=== PATIENT | male | born 1945 | race Caucasian/White ===

== ENCOUNTER 2017-06-03 12:44 | Emergency (ER) | payer OTHER ==
[~2017-06-03] VITALS: Ht 170.2 cm; Wt 79.7 kg
[~2017-06-03 12:44] MED LIST: ENAL20TA81 PO; HYDR-2768 PO; SPIRCAP INH; VENTAER INH
[2017-06-03 12:53] VITALS: BP 148/69; PULSE 84; RESP 16; TEMP 97.8; O2SAT 98
[2017-06-03] MEDS ORDERED: LOVA10TA PO (13:21)
[2017-06-03] MEDS ORDERED: HYDR25TA5 PO (13:21)
[2017-06-03] MEDS ORDERED: ENAL5TAB PO (13:21)
[2017-06-03] MEDS ORDERED: DIFL100T PO (14:29)
[2017-06-03] MEDS ORDERED: CLIN300C5 PO (14:29)
--- NOTE | 2017-06-03 14:30 | PD ---
HPI Chief Complaint: Skin Problem Time Seen by Provider: 13:25 Travel History International Travel<30 days: No Contact w/Intl Traveler<30days: No Traveled to known affect area: No History of Present Illness HPI This is a 71-year-old male here for evaluation of possible skin infection of feet and hands 4 weeks. He reports he believes the area with athlete's foot and attempted to use [id number] antifungal cream with minimal results. He reports the area has become increasingly more painful and red which now has dry cracking skin. He denies fever or chills. Symptom severity is moderate. No aggravating factors. PFSH Past Medical History Hx Anticoagulant Therapy: Yes (ASA 81mg daily) Cancer: No High Cholesterol: Yes Diabetes: No Diminished Hearing: No Glaucoma: No Hepatitis: No Hiatal Hernia: Yes Hypertension: Yes Thyroid Disease: No Tetanus Vaccination: < 5 Years Influenza Vaccination: Yes ?: Not Past Surgical History Abdominal Surgery: No Cardiac Surgery: No Ear Surgery: No Endocrine Surgery: No Eye Surgery: No Genitourinary Surgery: Yes (VASECTOMY 1967) Gynecologic Surgery: No Oral Surgery: No Pacemaker: No Thoracic Surgery: No Other Surgery: Yes (RIGHT INGUNIAL HERNIA) Social History Alcohol Use: Yes (3 BEERS/DAY) Tobacco Use: Yes (/2 PPD) Allergies-Medications (Allergen,Severity, Reaction): Coded Allergies: No Known Allergies (Unverified , 05/07/09) Reported Meds & Prescriptions Reported Meds & Active Scripts Active Reported Enalapril (Enalapril Maleate) 5 Mg Tab 5 Mg PO DAILY Hydrochlorothiazide 25 Mg Tab 25 Mg PO DAILY Lovastatin 10 Mg Tab 10 Mg PO DAILY Review of Systems Except as stated in HPI: all other systems reviewed are Neg General / Constitutional: No: Fever Eyes: No: Visual changes HENT: No: Headaches Cardiovascular: No: Chest Pain or Discomfort Respiratory: No: Shortness of Breath Gastrointestinal: No: Abdominal Pain Genitourinary: No: Dysuria Musculoskeletal: No: Pain Skin: Positive Rash Physical Exam Narrative GENERAL: Alert well-appearing 71-year-old male SKIN: Warm and dry. HEAD: Normocephalic. EYES: No injection or drainage. NECK: Supple, trachea midline. CARDIOVASCULAR: Regular rate and rhythm without murmurs, gallops, or rubs. RESPIRATORY: Breath sounds equal bilaterally. No accessory muscle use. GASTROINTESTINAL: Abdomen soft, non-tender, nondistended. MUSCULOSKELETAL: No cyanosis. Lower extremities: 1+ pitting edema in both ankles. Patient reports this is chronic. 2+ DP pulses area and normal sensation. Brisk cap refill. Erythema and dry cracking skin to the plantar aspect of both feet and webs of toes. Data Data Last Documented VS Vital Signs Date Time Temp Pulse Resp B/P (MAP) Pulse Ox O2 Delivery O2 Flow Rate FiO2 06/03/17 12:53 97.8 84 16 148/69 (95) 98 MDM Medical Decision Making Medical Screen Exam Complete: Yes Emergency Medical Condition: Yes Differential Diagnosis Tinea pedis, cellulitis, abscess Narrative Course 71-year-old male here with tinea pedis unresponsive to [id number] antifungals. It now appears that he has possibly secondary infection. He is nontoxic appearing. He is afebrile. He has a follow-up appointment with his primary doctor on Wednesday. He will be started on antifungals and antibiotics. Diagnosis Primary Impression: Tinea pedis Qualified Codes: B35.3 - Tinea pedis Additional Impression: Cellulitis Qualified Codes: L03.90 - Cellulitis, unspecified Referrals: Primary Care Physician Additional Instructions: Medication as directed. Keep your follow-up appointment with her doctor on Wednesday. Return to the emergency department if he developed new or worsening symptoms. Scripts Clindamycin (Clindamycin) 300 Mg Cap 300 MG PO Q6H for Infection for 7 Days, #28 CAP 0 Refills Prov: Anamaria Fraser 06/03/17 Fluconazole (Diflucan) 100 Mg Tab 100 MG PO DAILY for Infection for 7 Days, #7 TAB 0 Refills Prov: Anamaria Fraser 06/03/17 Disposition: 01 DISCHARGE HOME Condition: Stable Anamaria Fraser Jun 03, 2017 14:30
== END 2017-06-03 14:56 | disposition home or self-care (01) ==
LOC: PHEFT 12:44
DX: B35.3 Tinea pedis (principal); F17.200 Nicotine dependence, unspecified, uncomplicated; E78.00 Pure hypercholesterolemia, unspecified; I10 Essential (primary) hypertension
CPT/HCPCS: 99283